=== PATIENT | male | born 1945 | race Caucasian/White ===

== ENCOUNTER 2017-08-03 11:25 | Emergency (ER) | payer MEDICARE, BC ==
[~2017-08-03] VITALS: Ht 172.7 cm; Wt 73.6 kg
[~2017-08-03 11:25] MED LIST: ASPI81TA82 PO; ATOR40TA49 PO; CALC625 PO; ERYT1O LEFT EYE; GLUC1CAP14; LISI-363 PO; NIAC500 PO; OMEG12002 PO; OMEP20TA39 PO; TAB-TAB PO
[2017-08-03 11:29] VITALS: BP 180/97; PULSE 119; RESP 18; TEMP 97.4; O2SAT 98
--- NOTE | 2017-08-03 11:42 | PD ---
HPI Chief Complaint: Cardiac Complaint Time Seen by Provider: 11:34 Travel History International Travel<30 days: No Contact w/Intl Traveler<30days: No Traveled to known affect area: No History of Present Illness HPI 71-year-old male complains of URI symptoms for the past week and a half or so. he was seen in urgent care clinic and was sent here because they're the pulse was 140. He complains of right otalgia. He denies fever. No chest pain shortness of breath or palpitation. Patient reports productive cough. The urgent care center called in amoxicillin prescription. PFSH Past Medical History Arthritis: Yes Cardiovascular Problems: Yes (HTN) High Cholesterol: Yes Diverticulitis: Yes GERD: Yes Genitourinary: Yes (stage 3 kidney disease) Hypertension: Yes Past Surgical History Other Surgery: Yes (posterior head/neck area ) Social History Alcohol Use: Yes (occas. beer) Tobacco Use: No Substance Use: No Allergies-Medications (Allergen,Severity, Reaction): Coded Allergies: tamsulosin (Verified Allergy, Unknown, 08/03/17) Reported Meds & Prescriptions Reported Meds & Active Scripts Active Azithromycin 250 Mg Tab 250 Mg PO DIRECTED Take 2 tabs (500 mg) on day 1 then 1 tab daily x 4 days. Magnesium Oxide 500 Mg Tab 500 Mg PO DAILY 7 Days Reported One Daily (Multiple Vitamin) 1 Tab 1 Tab PO DAILY Rapaflo (Silodosin) 8 Mg Cap 8 Mg PO DAILY Aspirin Low Dose (Aspirin) 81 Mg Chew 81 Mg CHEW DAILY Dameron-3 Fish Oil/Vitamin (Fish Oil-Cholecalciferol) 1,000-1,000 Mg Cap 1 Cap PO DAILY Glucosamine (Glucosamine Sulfate) 750 Mg Cap 750 Mg PO DAILY Niaspan (Niacin) 500 Mg Tab 500 Mg PO HS Omeprazole 20 Mg Tab 20 Mg PO DAILY Lipitor (Atorvastatin Calcium) 40 Mg Tab 40 Mg PO HS Prinivil (Lisinopril) 20 Mg Tab 40 Mg PO DAILY Review of Systems Except as stated in HPI: all other systems reviewed are Neg General / Constitutional: No: Fever Respiratory: Positive: Cough Physical Exam Narrative GENERAL: 71-year-old male pleasant and speaking full sentences SKIN: Focused skin assessment warm/dry. HEAD: Atraumatic. Normocephalic. EYES: Pupils equal and round. No scleral icterus. No injection or drainage. ENT: No nasal bleeding or discharge. Mucous membranes pink and moist. Posterior oropharynx is minimally erythematous without exudate or asymmetry. Tympanic membranes intact with clear visualization of bony landmarks NECK: Trachea midline. No JVD. CARDIOVASCULAR: Heart rate is about 110 and regular. RESPIRATORY: Lungs are clear and there is no tachypnea or accessory muscle use. GASTROINTESTINAL: Abdomen soft, non-tender, nondistended. Hepatic and splenic margins not palpable. MUSCULOSKELETAL: No obvious deformities. No clubbing. No cyanosis. No edema. NEUROLOGICAL: Awake and alert. No obvious cranial nerve deficits. Motor grossly within normal limits. Normal speech. PSYCHIATRIC: Appropriate mood and affect; insight and judgment normal. Data Data Last Documented VS Vital Signs Date Time Temp Pulse Resp B/P (MAP) Pulse Ox O2 Delivery O2 Flow Rate FiO2 08/03/17 12:57 08/03/17 12:23 91 18 100 Nasal Cannula 2.00 08/03/17 11:29 97.4 VS reviewed Orders Orders Electrocardiogram (08/03/17 11:39) Basic Metabolic Panel (Bmp) (08/03/17 11:39) Ckmb (Isoenzyme) Profile (08/03/17 11:39) Complete Blood Count With Diff (08/03/17 11:39) Magnesium (Mg) (08/03/17 11:39) Prothrombin Time / Inr (Pt) (08/03/17 11:39) Act Partial Throm Time (Ptt) (08/03/17 11:39) Troponin I (08/03/17 11:39) Chest, Single Ap (08/03/17 11:39) Ecg Monitoring (08/03/17 11:39) Iv Access Insert/Monitor (08/03/17 11:39) Oximetry (08/03/17 11:39) Oxygen Administration (08/03/17 11:39) Sodium Chloride 0.9% Flush (Ns Flush) (08/03/17 11:45) Sodium Chlor 0.9% 1000 Ml Inj (Ns 1000 M (08/03/17 11:45) Magnesium Sulfate 1 Gm Premix (Magnesium (08/03/17 12:45) Ed Discharge Order (08/03/17 12:49) Magnesium Oxide (Mag-Ox) (08/03/17 13:15) Labs Laboratory Tests Test 08/03/17 11:47 White Blood Count 7.9 TH/MM3 Red Blood Count 4.24 MIL/MM3 Hemoglobin 12.9 GM/DL Hematocrit 38.4 % Mean Corpuscular Volume 90.6 FL Mean Corpuscular Hemoglobin 30.5 PG Mean Corpuscular Hemoglobin Concent 33.7 % Red Cell Distribution Width 12.3 % Platelet Count 220 TH/MM3 Mean Platelet Volume 7.0 FL Neutrophils (%) (Auto) 65.7 % Lymphocytes (%) (Auto) 24.4 % Monocytes (%) (Auto) 7.9 % Eosinophils (%) (Auto) 1.5 % Basophils (%) (Auto) 0.5 % Neutrophils # (Auto) 5.3 TH/MM3 Lymphocytes # (Auto) 1.9 TH/MM3 Monocytes # (Auto) 0.6 TH/MM3 Eosinophils # (Auto) 0.1 TH/MM3 Basophils # (Auto) 0.0 TH/MM3 CBC Comment DIFF FINAL Differential Comment Prothrombin Time 10.5 SEC Prothromb Time International Ratio 1.0 RATIO Activated Partial Thromboplast Time 23.8 SEC Blood Urea Nitrogen 43 MG/DL Creatinine 1.70 MG/DL Random Glucose 131 MG/DL Calcium Level 9.4 MG/DL Magnesium Level 1.4 MG/DL Sodium Level 142 MEQ/L Potassium Level 4.7 MEQ/L Chloride Level 108 MEQ/L Carbon Dioxide Level 24.3 MEQ/L Anion Gap 10 MEQ/L Estimat Glomerular Filtration Rate 40 ML/MIN Total Creatine Kinase 83 U/L Troponin I LESS THAN 0.02 NG/ML MDM Medical Decision Making Medical Screen Exam Complete: Yes Emergency Medical Condition: Yes Medical Record Reviewed: Yes Differential Diagnosis URI, PNA, arrhythmia Narrative Course CBC & BMP Diagram 08/03/17 11:47 Calcium Level 9.4, Magnesium Level 1.4 L Last Impressions Chest X-Ray 08/03/17 1139 Signed Impressions: Service Date/Time: Thursday, August 03, 2017 11:43 - CONCLUSION: 1. No active disease. Stable calcified pleural plaques on the right since 2014. Jay Pagan MD EKG shows sinus tachycardia with a rate of 104 normal axis There have been episodes of tachycardia previously and association with fever not totally unexpected and today's scenario. The patient has had no palpitation or chest pain. With stage III chronic renal insufficiency and an undetectable troponin I think coronary disease is reasonably safely excluded. Patient is at outside follow-up and will therefore obtain primary care follow- up as an outpatient expeditiously. We will add azithromycin given the nature of his cough for typical coverage. Continuation of amoxicillin for the acute otitis media is not unreasonable. Normal magnesium given here as well as a magnesium prescription. All questions answered to the satisfaction of all parties. Diagnosis Primary Impression: Tachycardia Additional Impressions: Bronchitis Otalgia Qualified Codes: H92.01 - Otalgia, right ear Hypomagnesemia Referrals: Primary Care Physician call for appointment Med/Other Pt SpecificInfo: Prescription(s) given Scripts Azithromycin (Azithromycin) 250 Mg Tab 250 MG PO DIRECTED for Infection, #6 TAB 0 Refills Take 2 tabs (500 mg) on day 1 then 1 tab daily x 4 days. Prov: Edward Granda MD 08/03/17 Magnesium Oxide (Magnesium Oxide) 500 Mg Tab 500 MG PO DAILY for 7 Days, #7 TAB 0 Refills Prov: Edward Granda MD 08/03/17 Disposition: DISCHARGE HOME Condition: Stable Edward Granda MD Aug 03, 2017 11:42
[2017-08-03] MEDS ORDERED: SODIUM CHLORIDE 0.9% FLUSH 10 ML FLUSH IVF PRN (11:45)
[2017-08-03] MEDS ORDERED: SODIUM CHLOR 0.9% 1000 ML INJ 1,000 ML IV ONE (11:45)
[2017-08-03] MEDS ORDERED: OMEGCAP PO (11:46)
[2017-08-03] MEDS ORDERED: MULT-207 PO (11:46)
[2017-08-03] MEDS ORDERED: OMEP20TA93 PO (11:46)
[2017-08-03] MEDS ORDERED: RAPA8CAP PO (11:46)
[2017-08-03] MEDS ORDERED: PRIN20TA2 PO (11:46)
[2017-08-03] MEDS ORDERED: ASPI81CH6 CHEW (11:46)
[2017-08-03] MEDS ORDERED: NIAC500 PO (11:46)
[2017-08-03] MEDS ORDERED: GLUC750C PO (11:46)
[2017-08-03] MEDS ORDERED: LIPI40TA PO (11:46)
[2017-08-03 12:01] VITALS: O2SAT 97
[2017-08-03 12:01] LABS: AUTOMATED NEUTROPHIL # 5.3 TH/MM3 (1.8-7.7); BASOPHIL % 0.5 % (0.0-2.0); EOSINOPHIL # 0.1 TH/MM3 (0-0.4); EOSINOPHIL % 1.5 % (0.0-4.0); HEMATOCRIT 38.4 % (39.0-51.0); HEMOGLOBIN 12.9 GM/DL (13.0-17.0); LYMPH % 24.4 % (9.0-44.0); LYMPHOCYTE # 1.9 TH/MM3 (1.0-4.8); MEAN CELL VOLUME 90.6 FL (80.0-100.0); MEAN CORPUSCULAR HEMOGLOBIN 30.5 PG (27.0-34.0); MEAN CORPUSCULAR HGB CONC 33.7 % (32.0-36.0); MONO % 7.9 % (0.0-8.0); MONOCYTE # 0.6 TH/MM3 (0-0.9); NEUT % 65.7 % (16.0-70.0); PLATELET COUNT 220 TH/MM3 (150-450); RED BLOOD COUNT 4.24 MIL/MM3 (4.50-5.90); RED CELL DISTRIBUTION WIDTH 12.3 % (11.6-17.2); WHITE BLOOD COUNT 7.9 TH/MM3 (4.0-11.0)
[2017-08-03 12:11] LABS: CHLORIDE 108 MEQ/L (98-107); SODIUM (NA) 142 MEQ/L (136-145)
--- NOTE | 2017-08-03 12:11 | RADRPT ---
EXAM DATE/TIME: 08/03/2017 11:43 [facility] COMPARISON: CHEST PA & LAT, September 22, 2014, 17:48. INDICATIONS : Flu like symptoms x 2weeks, elevated heart rate today. MEDICAL HISTORY : None. SURGICAL HISTORY : None. ENCOUNTER: Initial ACUITY: 2 weeks PAIN SCORE: 0/10 LOCATION: Bilateral chest FINDINGS: A single view of the chest demonstrates the lungs to be symmetrically aerated without evidence of mas s, infiltrate or effusion. Calcified pleural plaques on the right. The cardiomediastinal contours are unremarkable. Osseous structures are intact. CONCLUSION: 1. No active disease. Stable calcified pleural plaques on the right since 2014. Jay Pagan MD on August 03, 2017 at 12:09 Board Certified Radiologist. This report was verified electronically.
[2017-08-03 12:14] LABS: CALCIUM 9.4 MG/DL (8.5-10.1); PROTHROMBIN TIME - PATIENT 10.5 SEC (9.8-11.6)
[2017-08-03 12:15] LABS: BICARBONATE 24.3 MEQ/L (21.0-32.0); BLOOD UREA NITROGEN 43 MG/DL (7-18); GLUCOSE,RANDOM 131 MG/DL (74-106); MAGNESIUM 1.4 MG/DL (1.5-2.5)
[2017-08-03 12:18] LABS: GLOMERULAR FILTRATION RATE 40 ML/MIN (>89)
[2017-08-03 12:23] VITALS: BP 123/79; PULSE 91; RESP 18; O2SAT 100
[2017-08-03 12:23] LABS: TROPONIN I LESS THAN 0.02 NG/ML (0.02-0.05)
[2017-08-03] MEDS ORDERED: MAGN500T2 PO (12:41)
[2017-08-03] MEDS ORDERED: MAGNESIUM SULFATE 1 GM PREMIX 100 ML IV ONE (12:45)
[2017-08-03] MEDS ORDERED: AZIT250T3 PO (13:01)
[2017-08-03] MEDS ORDERED: MAGNESIUM OXIDE 400 MG TAB PO ONE (13:15)
--- NOTE | 2017-08-06 00:06 | EKG ---
Date Performed: 08/03/2017 Time Performed: 11:42:21 PTAGE: 71 years EKG: SINUS TACHYCARDIA POSSIBLE RIGHT VENTRICULAR CONDUCTION DELAY ABNORMAL RHYTHM ECG NO PREVIOUS TRACING DOCTOR: Nina Vigil Interpretating Date/Time 08/06/2017 00:05:31
== END 2017-08-03 13:10 | disposition home or self-care (01) ==
LOC: PHED 11:25
DX: R00.0 Tachycardia, unspecified (principal); J40 Bronchitis, not specified as acute or chronic; H92.01 Otalgia, right ear; R94.31 Abnormal electrocardiogram [ECG] [EKG]; E83.42 Hypomagnesemia; I12.9 Hypertensive chronic kidney disease with stage 1 through stage 4 chronic kidney disease, or unspecified chronic kidney disease; N18.3 Chronic kidney disease, stage 3 (moderate); K21.9 Gastro-esophageal reflux disease without esophagitis; Z87.19 Personal history of other diseases of the digestive system
CPT/HCPCS: 71045; 80048; 82550; 83735; 84484; 85025; 85610; 85730; 93005; 96360; 99285; J7030